=== PATIENT | female | born 1960 | race Caucasian/White ===

== ENCOUNTER 2018-10-16 13:51 | Inpatient (IN) | payer OTHER ==
[~2018-10-16] VITALS: Ht 157.5 cm; Wt 63.6 kg
[~2018-10-16 13:51] MED LIST: HYDR-762 PO
[2018-10-16 13:54] VITALS: Ht 157.5 cm; Wt 63.6 kg
--- NOTE | 2018-10-16 14:08 | ERD ---
ER Documentation Chief Complaint Chief Complaint aloc , trouble speaking since 0700 , chest pressure HPI 58-year-old female with a history of hypertension brought in by family due to increasing confusion and difficulty speaking since 7 AM today. Patient complains of a gradual onset severe headache that started around 8 AM. She is unable to provide further history as she is having difficulty speaking. She does complain of severe pain in her head at this time. No history of similar episodes in the past. ROS Limited secondary to the patient's confusion Medications Home Meds Reported Medications Metoprolol Tartrate* (Lopressor*) 25 Mg Tab, 25 MG PO DAILY, #60 TAB 10/16/18 Clonidine Hcl* (Clonidine Hcl*) 0.1 Mg Tab, 0.1 MG PO NEEDED PRN for HTN, TAB 10/16/18 Omeprazole* (Omeprazole*) 20 Mg Capsule.dr, 20 MG PO DAILY, #30 CAP 10/16/18 Discontinued Scripts Hydrocodone Bit-Acetaminophen* (Orick*) 10-325 Mg Tablet, 1 TAB PO Q6 PRN for PAIN, #12 TAB Prov:ANGELA BEAR MD 06/25/15 Allergies Allergies: Coded Allergies: No Known Allergy (Unverified , 10/16/18) PMhx/Soc Hx Cardiac Disorders: Yes (HTN) Hx Alcohol Use: No Hx Substance Use: No Hx Tobacco Use: Yes FmHx Unable to obtain Physical Exam Vitals Vital Signs Date Temp Pulse Resp B/P (MAP) Pulse Ox O2 O2 Flow FiO2 Time Delivery Rate 10/16/18 98.1 64 18 196/104 96 13:54 (134) Physical Exam Const: In significant distress secondary to pain, appears very uncomfortable Head: Atraumatic Eyes: Normal Conjunctiva, PERRLA, EOMI, no nystagmus ENT: Normal External Ears, Nose and Mouth. Neck: Full range of motion. No meningismus. No JVD Resp: Clear to auscultation bilaterally Cardio: Regular rate and rhythm, no murmurs. 2+ distal pulses in all 4 extremities Abd: Soft, non tender, non distended. Normal bowel sounds Skin: No petechiae or rashes Back: No midline or flank tenderness Ext: No cyanosis, or edema Neur: Awake and alert, oriented to self and place only, no facial asymmetry, following commands, strength and sensation equal in all 4 extremities and intact. No dysarthria but has some expressive aphasia. Psych: Normal Mood and Affect Result Diagram: 10/16/18 1405 10/16/18 1405 Results 24 hrs Laboratory Tests Test 10/16/18 14:05 White Blood Count 9.6 10^3/ul Red Blood Count 4.49 10^6/ul Hemoglobin 13.3 g/dl Hematocrit 39.5 % Mean Corpuscular Volume 88.0 fl Mean Corpuscular Hemoglobin 29.6 pg Mean Corpuscular Hemoglobin Concent 33.7 g/dl Red Cell Distribution Width 11.7 % Platelet Count 279 10^3/UL Mean Platelet Volume 9.9 fl Immature Granulocytes % 0.300 % Neutrophils % 66.7 % Lymphocytes % 25.4 % Monocytes % 6.1 % Eosinophils % 0.9 % Basophils % 0.6 % Nucleated Red Blood Cells % 0.0 /100WBC Immature Granulocytes # 0.030 10^3/ul Neutrophils # 6.4 10^3/ul Lymphocytes # 2.4 10^3/ul Monocytes # 0.6 10^3/ul Eosinophils # 0.1 10^3/ul Basophils # 0.1 10^3/ul Nucleated Red Blood Cells # 0.0 10^3/ul Prothrombin Time 12.9 Sec Prothrombin Time Ratio 1.0 INR International Normalized Ratio 0.96 Activated Partial Thromboplast Time 28.3 Sec Sodium Level 140 mmol/L Potassium Level 3.7 mmol/L Chloride Level 104 mmol/L Carbon Dioxide Level 27 mmol/L Anion Gap 9 Blood Urea Nitrogen 11 mg/dl Creatinine 0.68 mg/dl Est Glomerular Filtrat Rate mL/min > 60 mL/min Glucose Level 117 mg/dl Hemoglobin A1c 5.1 % Calcium Level 9.8 mg/dl Creatine Kinase 63 IU/L Creatine Kinase Index 0.6 Creatinine Kinase MB (Mass) 0.39 ng/ml Troponin I < 0.012 ng/ml Triglycerides Level 114 mg/dl Cholesterol Level 234 mg/dl LDL Cholesterol, Calculated 141 mg/dl HDL Cholesterol 70 mg/dl Cholesterol/HDL Ratio 3.3 RATIO Free Thyroxine 1.08 ng/dl Ethyl Alcohol Level < 10.0 mg/dl Current Medications Medications Dose Sig/Ricardo Start Time Status Last (Trade) Ordered Route PRN Stop Time Admin Dose Reason Admin Fentanyl 50 mcg ONCE ONCE 10/16/18 DC 10/16/18 (Sublimaze) IV 15:00 14:47 10/16/18 15:01 10 mg ONCE ONCE 10/16/18 DC 10/16/18 Metoclopramid IV 15:00 14:47 e HCl 10/16/18 15:01 (Reglan) Hydralazine 10 mg ONCE ONCE 10/16/18 DC 10/16/18 HCl IV 15:00 14:47 (Apresoline) 10/16/18 15:01 Ondansetron 4 mg ER BRIDGE 10/16/18 DC HCl (Zofran PRN IV 16:00 Inj) NAUSEA/VOMITI 10/16/18 16:13 NG 650 mg ER BRIDGE 10/16/18 DC Acetaminophen PRN PO 16:00 (Tylenol .MILD PAIN 10/16/18 16:14 Tab) 1-3 OR TEMP IV Flush 3 ml PER 10/16/18 (NS 3 ml) PROTOCOL IV 16:30 Ondansetron 4 mg Q6H PRN 10/16/18 10/16/18 HCl (Zofran IV 16:30 16:55 Inj) NAUSEA/VOMITI NG 650 mg Q6H PRN 10/16/18 Acetaminophen PO .PAIN 1-3 16:30 (Tylenol OR TEMP Tab) 1 tab Q6H PRN 10/16/18 Acetaminophen PO .MOD PAIN 16:30 / 4-6 Hydrocodone Bitart (Orick (5/325)) Morphine 2 mg Q4H PRN 10/16/18 Sulfate IV .SEVERE 16:30 (morphine) PAIN 7-10 Docusate 100 mg Q12H PRN 10/16/18 Sodium PO 16:30 (Colace) .CONSTIPATION Magnesium 30 ml DAILY PRN 10/16/18 Hydroxide PO 16:30 (Milk Of Mag) .CONSTIPATION 40 mg DAILY@06 10/17/18 Pantoprazole PO 06:00 (Protonix Tab) Sodium 1,000 ml @ [id number] IV 10/16/18 Chloride 75 mls/hr 16:04 Lorazepam 0.5 mg Q6H PRN 10/16/18 (Ativan) IV ANXIETY 16:30 Albuterol/ 3 ml Q4H RESP 10/16/18 Ipratropium THERAPY PRN 16:30 (Duoneb) HHN SHORTNESS OF BREATH Hydralazine 10 mg Q6H PRN 10/16/18 HCl IV ELEVATED 16:30 (Apresoline) BLOOD PRESSURE 1 tab Q5M PRN 10/16/18 Nitroglycerin SL ANGINA 16:30 (Nitroglyceri n (Sl Tab) 0.4 Mg) Aspirin 325 mg DAILY PO 10/17/18 (Ecotrin) 09:00 80 mg ONCE ONCE 10/16/18 DC Atorvastatin PO 16:30 Calcium 10/16/18 16:31 (Lipitor) Procedures/MDM EMERGENT LABS AND DIAGNOSTIC STUDIES: Lab Results above were reviewed and interpreted by me. CBC: no anemia or evidence of infection BMP: No e/o clinically significant electrolyte abnormality severe acidosis, alkalosis, renal failure, diabetic ketoacidosis Troponin within normal limits, not indicative of cardiac ischemia 12-lead EKG was interpreted by Kenzie Cuevas MD: Normal Sinus Rhythm with ventricular rate of 62 beats per minute Normal axis Normal intervals Anterior Q waves, possibly secondary to old infarct. No acute ST or T wave changes suggestive of acute ischemia or STEMI. Radiology Results as interpreted by Radiology below were reviewed by Maura Cuevas MD: Chest x-ray shows no acute abnormalities CT angiogram head and neck show no large vessel occlusion CT head shows no evidence of acute infarct or intracranial hemorrhage. White matter abnormalities noted Initial Nursing notes reviewed. Previous Medical Records requested via the Electronic Health Record. EMERGENCY DEPARTMENT COURSE / MEDICAL DECISION MAKING: Patient presented with headache and difficulty speaking with confusion per family. Her symptoms started around 8 AM, about 6 hours prior to arrival, so she is outside of the TPA window. Code stroke was activated at 1402. I spoke with Dr. Weaver from tele-neurology, who also evaluated the patient. CT and CTA we re done and did not show any large vessel occlusion or intracranial hemorrhage, however there is some white matter abnormalities. MRI was recommended for further evaluation for possible stroke versus PRES. she was given 10 mg of hydralazine for her blood pressure and fentanyl IV for her headache. At this time I have a higher suspicion for hypertensive emergency. Patient will be admitted for further work-up and stabilization. Critical Care Time: 45 minutes Treatments/Evaluations: Close monitoring and treatment of unstable vital signs, cardiorespiratory, and neurologic status, while maintaining tight balance of fluid, respiratory, and cardiac interventions. This time includes discussing the case with the patient and the patients family. This time does not include all procedures stated elsewhere in this record. This time also includes reviewing old records, labs and radiological studies. This time includes examining and re- examining the patient. Additionally, this time also includes arranging care with admitting and consulting physicians. Departure Diagnosis: Primary Impression: Hypertensive emergency Additional Impression: Acute encephalopathy Condition: Critical JANY CUEVAS MD Oct 16, 2018 14:08
[2018-10-16] MEDS ORDERED: SOD CHLORIDE 0.9% 100 ML ONE (14:28)
[2018-10-16] MEDS ORDERED: IODIXANOL LOCM 100 ML BTL ONE (14:29)
[2018-10-16] MEDS ORDERED: OMEP20CA16 PO (14:59)
[2018-10-16] MEDS ORDERED: FENTAnyl 50 MCG/ML VIAL IV ONE (15:00)
[2018-10-16] MEDS ORDERED: CLON-379 PO (15:00)
[2018-10-16] MEDS ORDERED: METOCLOPRAMIDE 10 MG INJ IV ONE (15:00)
[2018-10-16] MEDS ORDERED: METO-448 PO (15:00)
[2018-10-16] MEDS ORDERED: hydrALAzine 20 MG INJ IV ONE (15:00)
--- NOTE | 2018-10-16 15:36 | STROKE ---
Date/Time of Note Date/Time of Note DATE: 10/16/18 TIME: 16:24 Patient Information General Arrival Date Onset Date: Oct 16, 2018 Onset Time: 07:00 Onset Type 58 y/o F PMH HTN c/o sudden headache, difficulty with speech beginning at 0700 this morning. BP 194 Denies associated confusion, neck pain, vision or speech change. Age 58 Gender Vital Signs Date Temp Pulse Resp B/P (MAP) Pulse Ox O2 O2 Flow FiO2 Time Delivery Rate 10/16/18 98.1 64 18 196/104 96 13:54 (134) female Weight 63.6 kg Vital Signs Vital Signs Vital Signs Date Temp Pulse Resp B/P (MAP) Pulse Ox O2 O2 Flow FiO2 Time Delivery Rate 10/16/18 98.1 64 18 196/104 96 13:54 (134) Patient History Past Medical History Hypertension Current Medications Allergies: Coded Allergies: No Known Allergy (Unverified , 06/25/15) Labs Hematology Labs CBC & BMP FISHBONE 10/16/18 14:05 Hematology Lab Notes CBC & BMP FISHBONE 10/16/18 14:05 Chemistry Lab Notes CBC & BMP FISHBONE 10/16/18 14:05 History & Physical Patient History Notes Pt Hx Reviewed History of Present Illness 58 y/o F awoke this morning in usual state. at approximately 0700 developed holocranial pressure type headache. Denies associated vision or hearing change, no confusion or neck pain. Mild difficulty with communication- speaking intensifies head pain. No weakness. In ER, BP elevated. Review of Systems Psychiatric/Neurological: headache All Other Systems: Reviewed and Negative NIH Stroke Scale NIH Stroke Scale Dmpxi2Oi l4d LOC Questions: Mzczc4t Best Gaze: Urerc9m Vwznd6k alsy: Ulmhu3q rm - Left: Pokxo7r ight: Mvcqt1v eft: Vfvig6i ight: Rdnxu2t Gfnon7e Hreco4q Isrnu1c elias: Qmpgo4l Zgveb1c 4Bd Total Score: Iolvi0m Date/Time Recorded DATE: 10/16/18 TIME: 16:24 Submitted By Daniela Raza t-PA Imaging Review Date/Time Imaging Reviewed DATE: 10/16/18 TIME: 16:24 t-PA Administration Weight 63.6 kg Recommedation submitted by Daniela Raza Recommendations Disposition Severe headache in the setting of markedly elevated blood pressure. Symptoms and clinical presentation most c/w hypertensive encephalopathy. CT brain shows extensive periventricular ischemic change; no evidence per CT of acute stroke; no evidence on CTA H/N of large vessel occlusion . Admit for close monitoring and treatment. Gently lowering of BP. MRI brain. IVFNSS. 2DECHO. Treat headache symptomatically. ASA and statin unless otherwise contraindicated. Recommendation [id number] Diagnostic Labs: Ddrxp5k Lipid Proile CMP Coags Urine Drug Screen [id number] Therapy: [address] Speech Therapy [address] Recommendations: Wirqm0v Stroke Education DANIELA RAZA MD Oct 16, 2018 14:34
[2018-10-16] MEDS ORDERED: ONDANSETRON 4 MG INJ IV PRN (16:00)
[2018-10-16] MEDS ORDERED: ACETAMINOPHEN 325 MG TAB PO PRN (16:00)
[2018-10-16] MEDS: SOD CHLORIDE 0.45% 1,000 ML IV SCH (16:04)
--- NOTE | 2018-10-16 16:15 | HP ---
Date/Time of Note Date/Time of Note DATE: 10/16/18 TIME: 16:08 Assessment/Plan VTE Prophylaxis SCD applied (from Nsg): Yes Pharmacological prophylaxis: other Assessment/Plan Hospital Course Assessment and plan: 58-year-old female past medical history of hypertension who comes in with altered mental status and dysphasia, headache, with signs of hypertensive emergency and also cannot rule out TIA versus stroke. #Altered mental status/dysphasia, headache: Again symptoms could be secondary to patient's hypertensive encephalopathy/emergency. Also cannot rule out TIA versus stroke, although the head CT was initially negative. -Appreciate telemetry neurologist assessment, for now check TSH, A1c, lipid panel -For now allow for permissive hypertension until we know the results of MRI of the brain, also check carotid Doppler study and 2D echo -Continue high-dose aspirin, Lipitor 80 mg, get PT, OT, speech therapy consult, do neuro checks every 4 hours -Follow-up urine drug screen test #Hypertension: See above, for now holding home blood pressure medicines and allowing for permissive hypertension until we know the results of the brain MRI. #GI prophylaxis: PPI IV Result Diagram: 10/16/18 1405 10/16/18 1405 Results 24hrs Laboratory Tests Test 10/16/18 14:05 White Blood Count 9.6 Red Blood Count 4.49 Hemoglobin 13.3 Hematocrit 39.5 Mean Corpuscular Volume 88.0 Mean Corpuscular Hemoglobin 29.6 Mean Corpuscular Hemoglobin Concent 33.7 Red Cell Distribution Width 11.7 Platelet Count 279 Mean Platelet Volume 9.9 Immature Granulocytes % 0.300 Neutrophils % 66.7 Lymphocytes % 25.4 Monocytes % 6.1 Eosinophils % 0.9 Basophils % 0.6 Nucleated Red Blood Cells % 0.0 Immature Granulocytes # 0.030 Neutrophils # 6.4 Lymphocytes # 2.4 Monocytes # 0.6 Eosinophils # 0.1 Basophils # 0.1 Nucleated Red Blood Cells # 0.0 Prothrombin Time 12.9 Prothrombin Time Ratio 1.0 INR International Normalized Ratio 0.96 Activated Partial Thromboplast Time 28.3 Sodium Level 140 Potassium Level 3.7 Chloride Level 104 Carbon Dioxide Level 27 Anion Gap 9 Blood Urea Nitrogen 11 Creatinine 0.68 Est Glomerular Filtrat Rate mL/min > 60 Glucose Level 117 Hemoglobin A1c 5.1 Calcium Level 9.8 Creatine Kinase 63 Creatine Kinase Index 0.6 Creatinine Kinase MB (Mass) 0.39 Troponin I < 0.012 Triglycerides Level 114 Cholesterol Level 234 H LDL Cholesterol, Calculated 141 HDL Cholesterol 70 Cholesterol/HDL Ratio 3.3 Ethyl Alcohol Level < 10.0 H HPI/ROS Admit Date/Time Admit Date/Time Hx of Present Illness 58-year-old female past medical history of hypertension who comes in with altered mental status and dysphasia. Patient also complained of headache. Her symptoms appear to begin around this morning, possibly gradual in onset. Patient also complained of nausea symptoms and decreased p.o. intake. According to the family member patient last night did not have any complaints including these. Presently denies any upper or lower GI bleeding, no chest pain, although she has had some mild shortness of breath. No diarrhea constipation, no fevers or chills. When she came in she was found with very elevated blood pressure 196/104, and code stroke was called and the telemetry neurologist to assess the patient thinking patient may be having hypertensive emergency. Patient was given a blood pressure medication to help control the systolic and diastolic blood pressure and presently it is in the high normal range. Head CT did not show any acute findings, however an MRI of the brain is pending which was recommended by the telemetry neurologist as well. Patient denies any prior history of any stroke or heart attacks. PMH/Family/Social Past Medical History Medications Current Medications Ondansetron HCl (Zofran Inj) 4 mg ER BRIDGE PRN IV NAUSEA/VOMITING; Start 10/16/18 at 16:00; Stop 10/17/18 at 15:59 Acetaminophen (Tylenol Tab) 650 mg ER BRIDGE PRN PO .MILD PAIN 1-3 OR TEMP; Start 10/16/18 at 16:00; Stop 10/17/18 at 15:59 Coded Allergies: No Known Allergy (Unverified , 10/16/18) Past Surgical History Past Surgical Hx: no surgical history Family History Significant Family History: other (Mother: diabetes, hypertension) Social History Alcohol Use: none Smoking Status: Current some day smoker (Few cigarettes a day for many years) Drug Use: none Exam/Review of Systems Vital Signs Vitals Vital Signs Date Temp Pulse Resp B/P (MAP) Pulse Ox O2 O2 Flow FiO2 Time Delivery Rate 10/16/18 98.1 64 18 196/104 96 13:54 (134) Exam Exam Gen: Lying in bed, daughter at bedside, in mild distress Head: Atraumatic Eyes: Normal Conjunctiva, PERRLA, EOMI, no nystagmus ENT: Normal External Ears, Nose and Mouth. Neck: Full range of motion. No meningismus. No JVD Resp: Clear to auscultation bilaterally Cardio: Regular rate and rhythm, no murmurs. 2+ distal pulses in all 4 extremities Abd: Soft, non tender, non distended. Normal bowel sounds Ext: No lower extremity edema bilaterally Neuro: Awake and alert, oriented to self and place only, no facial asymmetry, following commands, 4 out of 5 strength bilateral upper extremities, 5 out of 5 strength bilateral lower 70s, sensation intact, gait not assessed, appears to have some mild expressive aphasia JUAN DUNN. Oct 16, 2018 16:15
[2018-10-16] MEDS ORDERED: ATORVASTATIN 80 MG TAB PO ONE (16:30)
[2018-10-16] MEDS ORDERED: morphine 2 MG INJ IV PRN (16:30)
[2018-10-16] MEDS ORDERED: MAGNESIUM HYDROXIDE 30ML CUP PO PRN (16:30)
[2018-10-16] MEDS ORDERED: ALBUTEROL/IPRATROPIUM (NEB) 3 ML AMP HHN PRN (16:30)
[2018-10-16] MEDS ORDERED: hydrALAzine 20 MG INJ IV PRN (16:30)
[2018-10-16] MEDS ORDERED: DOCUSATE SODIUM 100 MG CAP PO PRN (16:30)
[2018-10-16] MEDS ORDERED: LORAZEPAM 2 MG INJ IV PRN (16:30)
[2018-10-16] MEDS ORDERED: NITROGLYCERIN (SL) 0.4 MG TAB SL PRN (16:30)
[2018-10-16] MEDS ORDERED: HYDROCODONE/APAP (5/325) TAB PO PRN (16:30)
[2018-10-16] MEDS ORDERED: NACL 0.9% 3 ML SYG IV SCH (16:30)
[2018-10-16] MEDS: ONDANSETRON 4 MG INJ IV PRN (16:55)
[2018-10-16 19:20] VITALS: PULSE 70
[2018-10-16 20:00] VITALS: BP 138/75; PULSE 71; RESP 18
[2018-10-16] MEDS: ACETAMINOPHEN 325 MG TAB PO PRN (21:10)
[2018-10-17] VITALS (9 sets, daily range): BP systolic 102–156; BP diastolic 63–89; PULSE 67–91; RESP 16–19
[2018-10-17] MEDS: SOD CHLORIDE 0.45% 1,000 ML IV SCH (05:24)
[2018-10-17] MEDS ORDERED: PANTOPRAZOLE (EC) 40 MG TAB PO SCH (06:00)
[2018-10-17] MEDS ORDERED: ASPIRIN (EC) 325 MG TAB PO SCH (09:00)
[2018-10-17] MEDS ORDERED: POTASSIUM CHLORIDE (SR) 20 MEQ TAB PO STA (11:09)
--- NOTE | 2018-10-17 11:18 | PN ---
Date/Time of Note Date/Time of Note DATE: 10/17/18 TIME: 11:18 Assessment/Plan VTE Prophylaxis SCD applied (from Nsg): Yes Pharmacological prophylaxis: other Lines/Catheters IV Catheter Type (from Nrsg): Peripheral IV Urinary Cath still in place: No Assessment/Plan Hospital Course S: Patient has less overall weakness symptoms, blood pressure is improved, tolerating diet, seen by physical therapy team. Denies any headaches presently. O: VS- see below PE: Gen: Lying in bed, daughter at bedside, in mild distress Head: Atraumatic Eyes: Normal Conjunctiva, PERRLA, EOMI, no nystagmus ENT: Normal External Ears, Nose and Mouth. Neck: Full range of motion. No meningismus. No JVD Resp: Clear to auscultation bilaterally Cardio: Regular rate and rhythm, no murmurs. 2+ distal pulses in all 4 extremities Abd: Soft, non tender, non distended. Normal bowel sounds Ext: No lower extremity edema bilaterally Neuro: Awake and alert, oriented to self and place only, no facial asymmetry, following commands, 4 out of 5 strength bilateral upper extremities, 5 out of 5 strength bilateral lower 70s, sensation intact, gait not assessed, appears to have some mild expressive aphasia MRI brain: IMPRESSION: 1. No acute intracranial hemorrhage, infarction or mass. 2. Moderate to marked white matter signal abnormality which could represent chronic small vessel ischemic changes. 3. 8 mm probable meningioma overlying left parasagittal posterior frontal lobe. 4. Minimal generalized cerebral volume loss. Assessment and plan: 58-year-old female past medical history of hypertension who comes in with altered mental status and dysphasia, headache, with signs of hypertensive emergency and also cannot rule out TIA versus stroke. #Altered mental status/dysphasia, headache: Possibly secondary to hypertensive encephalopathy/emergency. Blood pressure much improved today, patient feels much better overall. MRI of the brain did not show any acute strokes, however there are some white matter changes and 8 mm meningioma. I spoke on the phone with neurosurgery team Dr. Landa who states that the meningioma or 8 mm mass likely is not contributing patient's symptoms. This can be monitored and followed up as an outpatient with brain imaging scan in the next 6 months to start. This is to determine if there are any changes in size of the small meningioma. -For now given the white matter changes will obtain neurology consult. -Continue PT and OT as needed #Hypertension: Blood pressure improved -Monitor, continue current medications. #GI prophylaxis: PPI Result Diagram: 10/17/18 0536 10/17/18 0537 Results 24hrs Laboratory Tests Test 10/16/18 14:05 10/16/18 20:45 10/17/18 05:36 10/17/18 05:37 White Blood Count 9.6 10.1 Red Blood Count 4.49 4.25 Hemoglobin 13.3 12.6 Hematocrit 39.5 38.1 Mean Corpuscular 88.0 89.6 Volume Mean Corpuscular 29.6 29.6 Hemoglobin Mean Corpuscular 33.7 33.1 Hemoglobin Concen t Red Cell 11.7 12.2 Distribution Width Platelet Count 279 261 Mean Platelet 9.9 10.5 H Volume Immature 0.300 0.300 Granulocytes % Neutrophils % 66.7 62.4 Lymphocytes % 25.4 28.4 Monocytes % 6.1 7.4 Eosinophils % 0.9 0.9 Basophils % 0.6 0.6 Nucleated Red 0.0 0.0 Blood Cells % Immature 0.030 0.030 Granulocytes # Neutrophils # 6.4 6.3 Lymphocytes # 2.4 2.9 Monocytes # 0.6 0.8 Eosinophils # 0.1 0.1 Basophils # 0.1 0.1 Nucleated Red 0.0 0.0 Blood Cells # Prothrombin Time 12.9 Prothrombin Time 1.0 Ratio INR International 0.96 Normalized Ratio Activated 28.3 Partial Thrombopl ast Time Sodium Level 140 140 Potassium Level 3.7 3.3 L Chloride Level 104 105 Carbon Dioxide 27 24 Level Anion Gap 9 11 Blood Urea 11 15 Nitrogen Creatinine 0.68 0.79 Est Glomerular > 60 > 60 Filtrat Rate mL/min Glucose Level 117 124 Hemoglobin A1c 5.1 5.1 Calcium Level 9.8 9.2 Creatine Kinase 63 Creatine Kinase 0.6 Index Creatinine Kinase 0.39 MB (Mass) Troponin I < 0.012 Triglycerides 114 106 Level Cholesterol Level 234 H 201 H LDL Cholesterol, 141 119 Calculated HDL Cholesterol 70 61 Cholesterol/HDL 3.3 3.2 Ratio Free Thyroxine 1.08 Ethyl Alcohol < 10.0 H Level Urine Color YELLOW Urine Clarity SLIGHTLY CLOUDY A Urine pH 7.0 Urine Specific 1.050 H [place] Urine Ketones 1+ H Urine Nitrite NEGATIVE Urine Bilirubin NEGATIVE Urine NEGATIVE Urobilinogen Urine Leukocyte NEGATIVE Esterase Urine Microscopic 3 RBC Urine Microscopic 4 WBC Urine Squamous FEW Epithelial Cells Urine Bacteria FEW A Urine Mucus FEW A Urine Hemoglobin NEGATIVE Urine Glucose NEGATIVE Urine Total NEGATIVE Protein Urine Opiates NEGATIVE Screen Urine NEGATIVE Barbiturates Urine Negative Amphetamines Screen Urine NEGATIVE Benzodiazepines Screen Urine Cocaine NEGATIVE Screen Urine NEGATIVE Cannabinoids Phosphorus Level 4.5 Magnesium Level 2.2 Thyroid 3.570 Stimulating Hormone (TSH) Exam/Review of Systems Exam Vitals Vital Signs Date Temp Pulse Resp B/P (MAP) Pulse Ox O2 O2 Flow FiO2 Time Delivery Rate 10/17/18 97.4 82 17 125/73 97 Room Air 08:10 (90) Results Results 24hrs Laboratory Tests Test 10/16/18 14:05 10/16/18 20:45 10/17/18 05:36 10/17/18 05:37 White Blood Count 9.6 10.1 Red Blood Count 4.49 4.25 Hemoglobin 13.3 12.6 Hematocrit 39.5 38.1 Mean Corpuscular 88.0 89.6 Volume Mean Corpuscular 29.6 29.6 Hemoglobin Mean Corpuscular 33.7 33.1 Hemoglobin Concen t Red Cell 11.7 12.2 Distribution Width Platelet Count 279 261 Mean Platelet 9.9 10.5 H Volume Immature 0.300 0.300 Granulocytes % Neutrophils % 66.7 62.4 Lymphocytes % 25.4 28.4 Monocytes % 6.1 7.4 Eosinophils % 0.9 0.9 Basophils % 0.6 0.6 Nucleated Red 0.0 0.0 Blood Cells % Immature 0.030 0.030 Granulocytes # Neutrophils # 6.4 6.3 Lymphocytes # 2.4 2.9 Monocytes # 0.6 0.8 Eosinophils # 0.1 0.1 Basophils # 0.1 0.1 Nucleated Red 0.0 0.0 Blood Cells # Prothrombin Time 12.9 Prothrombin Time 1.0 Ratio INR International 0.96 Normalized Ratio Activated 28.3 Partial Thrombopl ast Time Sodium Level 140 140 Potassium Level 3.7 3.3 L Chloride Level 104 105 Carbon Dioxide 27 24 Level Anion Gap 9 11 Blood Urea 11 15 Nitrogen Creatinine 0.68 0.79 Est Glomerular > 60 > 60 Filtrat Rate mL/min Glucose Level 117 124 Hemoglobin A1c 5.1 5.1 Calcium Level 9.8 9.2 Creatine Kinase 63 Creatine Kinase 0.6 Index Creatinine Kinase 0.39 MB (Mass) Troponin I < 0.012 Triglycerides 114 106 Level Cholesterol Level 234 H 201 H LDL Cholesterol, 141 119 Calculated HDL Cholesterol 70 61 Cholesterol/HDL 3.3 3.2 Ratio Free Thyroxine 1.08 Ethyl Alcohol < 10.0 H Level Urine Color YELLOW Urine Clarity SLIGHTLY CLOUDY A Urine pH 7.0 Urine Specific 1.050 H [place] Urine Ketones 1+ H Urine Nitrite NEGATIVE Urine Bilirubin NEGATIVE Urine NEGATIVE Urobilinogen Urine Leukocyte NEGATIVE Esterase Urine Microscopic 3 RBC Urine Microscopic 4 WBC Urine Squamous FEW Epithelial Cells Urine Bacteria FEW A Urine Mucus FEW A Urine Hemoglobin NEGATIVE Urine Glucose NEGATIVE Urine Total NEGATIVE Protein Urine Opiates NEGATIVE Screen Urine NEGATIVE Barbiturates Urine Negative Amphetamines Screen Urine NEGATIVE Benzodiazepines Screen Urine Cocaine NEGATIVE Screen Urine NEGATIVE Cannabinoids Phosphorus Level 4.5 Magnesium Level 2.2 Thyroid 3.570 Stimulating Hormone (TSH) Medications Medication Current Medications IV Flush (NS 3 ml) 3 ml PER PROTOCOL IV ; Start 10/16/18 at 16:30 Ondansetron HCl (Zofran Inj) 4 mg Q6H PRN IV NAUSEA/VOMITING Last administered on 10/16/18at 16:55; Admin Dose 4 MG; Start 10/16/18 at 16:30 Acetaminophen (Tylenol Tab) 650 mg Q6H PRN PO .PAIN 1-3 OR TEMP Last administered on 10/16/18at 21:10; Admin Dose 650 MG; Start 10/16/18 at 16:30 Acetaminophen/ Hydrocodone Bitart ([place] (5/325)) 1 tab Q6H PRN PO .MOD PAIN 4- 6; Start 10/16/18 at 16:30 Morphine Sulfate (morphine) 2 mg Q4H PRN IV .SEVERE PAIN 7-10; Start 10/16/18 at 16:30 Docusate Sodium (Colace) 100 mg Q12H PRN PO .CONSTIPATION; Start 10/16/18 at 16:30 Magnesium Hydroxide (Milk Of Mag) 30 ml DAILY PRN PO .CONSTIPATION; Start 10/16/18 at 16:30 Pantoprazole (Protonix Tab) 40 mg DAILY@06 PO Last administered on 10/17/18at 05:58; Admin Dose 40 MG; Start 10/17/18 at 06:00 Sodium Chloride 1,000 ml @ 75 mls/hr [id number] IV Last administered on 10/16/18at 16:04; Admin Dose 75 MLS/HR; Start 10/16/18 at 16:04 Lorazepam (Ativan) 0.5 mg Q6H PRN IV ANXIETY; Start 10/16/18 at 16:30 Albuterol/ Ipratropium (Duoneb) 3 ml Q4H RESP THERAPY PRN HHN SHORTNESS OF BREATH; Start 10/16/18 at 16:30 Hydralazine HCl (Apresoline) 10 mg Q6H PRN IV ELEVATED BLOOD PRESSURE; Start 10/16/18 at 16:30 Nitroglycerin (Nitroglycerin (Sl Tab) 0.4 Mg) 1 tab Q5M PRN SL ANGINA; Start at 16:30 Aspirin (Ecotrin) 325 mg DAILY PO Last administered on 10/17/18at 08:45; Admin Dose 325 MG; Start 10/17/18 at 09:00 JUAN DUNN Oct 17, 2018 11:18
--- NOTE | 2018-10-17 11:48 | PDOCDIS ---
Discharge Instructions CONDITION [id number] Patient Condition: [id number] Stable HOME CARE INSTRUCTIONS: [id number] Diet Instructions: [id number] Low Fat /Cholesterol ACTIVITY: [id number] Activity Restrictions: [id number] Slowly Increase Activity Rest between Activity Avoid heavy lifting FOLLOW UP/APPOINTMENTS Follow-up Plan Please take your medications as prescribed. Please follow-up with your regular doctor in clinic in the next 1 to 2 weeks. Based on discussion we had, along with the skin care consultant team, ask your primary care doctor to arrange a follow-up brain imaging study such as brain CT scan or MRI in 6 months to further determine the small meningioma found on this admission. JUAN DUNN. Oct 17, 2018 11:48
[2018-10-17] MEDS ORDERED: CLON-379 PO (11:50)
[2018-10-17] MEDS ORDERED: METO-448 PO (11:50)
[2018-10-17] MEDS ORDERED: OMEP20CA16 PO (11:50)
--- NOTE | 2018-10-17 11:56 | DS ---
Date/Time of Note Date/Time of Note DATE: 10/17/18 TIME: 11:50 Discharge Summary Admission/Discharge Info Admit Date/Time Oct 16, 2018 at 15:49 Discharge Date/Time Discharge Diagnosis #Altered mental status/dysphasia, headache: Likely secondary to hypertensive encephalopathy/emergency -Resolved now -ruled out for stroke #8 mm meningioma: Found on brain imaging study on this admission, per discussion with neurosurgery team not contributing to patient's symptoms and recommend follow-up brain imaging study in 6 months to determine any changes in size of this #Hypertension: Blood pressure improved Patient Condition: Stable Procedures MRI brain: IMPRESSION: 1. No acute intracranial hemorrhage, infarction or mass. 2. Moderate to marked white matter signal abnormality which could represent chronic small vessel ischemic changes. 3. 8 mm probable meningioma overlying left parasagittal posterior frontal lobe. 4. Minimal generalized cerebral volume loss. Carotid Doppler study: IMPRESSION: 1. Minimal bilateral carotid bifurcation/carotid bulb plaque without evidence for hemodynamically significant stenosis - validated velocity measurements with angiographic measurements, velocity criteria are extrapolated from diameter data as defined by the Society of Radiologists in Ultrasound Consensus Conference Radiology 2003; 229;340-346. This study does indirectly reference the measurement of the distal ICA diameter as the denominator for stenosis measurement. 2. Antegrade flow seen within the vertebral arteries bilaterally. Hx of Present Illness 58-year-old female past medical history of hypertension who comes in with altered mental status and dysphasia. Patient also complained of headache. Her symptoms appear to begin around this morning, possibly gradual in onset. Patient also complained of nausea symptoms and decreased p.o. intake. According to the family member patient last night did not have any complaints including these. Presently denies any upper or lower GI bleeding, no chest pain, although she has had some mild shortness of breath. No diarrhea constipation, no fevers or chills. When she came in she was found with very elevated blood pressure 196/104, and code stroke was called and the telemetry neurologist to assess the patient thinking patient may be having hypertensive emergency. Patient was given a blood pressure medication to help control the systolic and diastolic blood pressure and presently it is in the high normal range. Head CT did not sh ow any acute findings, however an MRI of the brain is pending which was recommended by the telemetry neurologist as well. Patient denies any prior history of any stroke or heart attacks. Hospital Course Patient was admitted and she underwent imaging studies including carotid Doppler study and brain MRI. There were no findings of any hemorrhagic or ischemic in farcts. However there were some white matter changes an 8 mm meningioma. Per discussion with both neurology and neurosurgery team, the meningioma was not thought to be contributing to the patient's symptoms. Patient did receive high- dose aspirin and Lipitor, however her symptoms improved while she was here in the hospital. She was able to ambulate, tolerated p.o. diet. Her blood pressure and other vital signs were stable as well. Patient was educated about the importance of adhering to her blood pressure medicines as the neurology team instructed patient and myself that the white matter changes were thought to be secondary to uncontrolled high blood pressure over many years. Labs are stable as well. She will be discharged home today improved condition after getting clearance from the [employer] sales consultant teams, but is recommended to follow-up with brain imaging scan in the next 6 months to see if there are any changes in the size of the small meningioma. See below for full list of discharge medications. Home Meds Active Scripts Metoprolol Tartrate* (Lopressor*) 25 Mg Tab, 25 MG PO DAILY, #30 TAB 2 Refills Prov:JUAN DUNN S. 10/17/18 Clonidine Hcl* (Clonidine Hcl*) 0.1 Mg Tab, 0.1 MG PO NEEDED PRN for HTN, #14 TAB Prov:JUAN DUNN S. 10/17/18 Omeprazole* (Omeprazole*) 20 Mg Capsule.dr, 20 MG PO DAILY, #30 CAP 2 Refills Prov:ARNOLD DUNNP S. 10/17/18 Discontinued Scripts Hydrocodone Bit-Acetaminophen* ([place]*) 10-325 Mg Tablet, 1 TAB PO Q6 PRN for PAIN, #12 TAB Prov:ANGELA BEAR MD 06/25/15 Follow-up Plan Please take your medications as prescribed. Please follow-up with your regular doctor in clinic in the next 1 to 2 weeks. Based on discussion we had, along with the [employer] sales consultant team, ask your primary care doctor to arrange a follow-up brain imaging study such as brain CT scan or MRI in 6 months to further determine the small meningioma found on this admission. Primary Care Provider Care Physician No Primary Pending Labs Laboratory Tests Test 10/16/18 14:05 10/16/18 20:45 10/17/18 05:36 10/17/18 05:37 White Blood 9.6 10.1 Count 10^3/ul (4.8-10 10^3/ul (4.8-1 .8) 0.8) Red Blood 4.49 4.25 Count 10^6/ul (4.20-5 10^6/ul (4.20- .40) 5.40) Hemoglobin 13.3 12.6 g/dl (12.0-16.0 g/dl (12.0-16. ) 0) Hematocrit 39.5 38.1 % (37.0-47.0) % (37.0-47.0) Mean 88.0 89.6 Corpuscular fl (82.0-101.0) fl (82.0-101.0 Volume ) Mean 29.6 29.6 Corpuscular pg (29.0-33.0) pg (29.0-33.0) Hemoglobin Mean 33.7 33.1 Corpuscular g/dl (32.0-37.0 g/dl (32.0-37. Hemoglobin Conc ) 0) ent Red Cell 11.7 12.2 Distribution % (11.5-14.5) % (11.5-14.5) Width Platelet Count 279 261 10^3/UL (140-41 10^3/UL (140-4 5) 15) Mean Platelet 9.9 10.5 Volume fl (7.4-10.4) fl (7.4-10.4) Immature 0.300 0.300 Granulocytes % % (0.001-0.429) % (0.001-0.429 ) Neutrophils % 66.7 62.4 % (39.0-77.0) % (39.0-77.0) Lymphocytes % 25.4 28.4 % (15.0-51.0) % (15.0-51.0) Monocytes % 6.1 7.4 % (0.0-11.0) % (0.0-11.0) Eosinophils % 0.9 % (0.0-7.0) 0.9 % (0.0-7.0) Basophils % 0.6 % (0.0-2.0) 0.6 % (0.0-2.0) Nucleated Red 0.0 0.0 Blood Cells % /100WBC (0.0-0. /100WBC (0.0-0 0) .0) Immature 0.030 0.030 Granulocytes # 10^3/ul (0.0-0. 10^3/ul (0.0-0 031) .031) Neutrophils # 6.4 6.3 10^3/ul (1.6-7. 10^3/ul (1.6-7 5) .5) Lymphocytes # 2.4 2.9 10^3/ul (0.8-2. 10^3/ul (0.8-2 9) .9) Monocytes # 0.6 0.8 10^3/ul (0.3-0. 10^3/ul (0.3-0 9) .9) Eosinophils # 0.1 0.1 10^3/ul (0.0-0. 10^3/ul (0.0-0 5) .5) Basophils # 0.1 0.1 10^3/ul (0.0-0. 10^3/ul (0.0-0 1) .1) Nucleated Red 0.0 0.0 Blood Cells # 10^3/ul (0.0-0. 10^3/ul (0.0-0 0) .0) Prothrombin 12.9 Time Sec (11.9-14.9) Prothrombin 1.0 Time Ratio INR 0.96 International Normalized Rati o Activated 28.3 Partial Thrombo Sec (23.0-35.0) plast Time Sodium Level 140 140 mmol/L (135-144 mmol/L (135-14 ) 4) Potassium 3.7 3.3 Level mmol/L (3.5-5.1 mmol/L (3.5-5. ) 1) Chloride Level 104 105 mmol/L (97-110) mmol/L (97-110 ) Carbon Dioxide 27 24 Level mmol/L (21-31) mmol/L (21-31) Anion Gap 9 (5-13) 11 (5-13) Blood Urea 11 mg/dl (7-20) 15 Nitrogen mg/dl (7-20) Creatinine 0.68 0.79 mg/dl (0.44-1.0 mg/dl (0.44-1. 0) 00) Est Glomerular > 60 > 60 Filtrat mL/min (>60) mL/min (>60) Rate mL/min Glucose Level 117 124 mg/dl (70-220) mg/dl (70-220) Hemoglobin A1c 5.1 % (0-5.9) 5.1 % (0-5.9) Calcium Level 9.8 9.2 mg/dl (8.4-10.2 mg/dl (8.4-10. ) 2) Creatine 63 Kinase IU/L (23-200) Creatine Kinase 0.6 Index Creatinine 0.39 Kinase MB ng/ml (0.0-2.4) (Mass) Troponin I < 0.012 ng/ml (0.000-0. 120) Triglycerides 114 106 Level mg/dl (0-149) mg/dl (0-149) Cholesterol 234 201 Level mg/dl (100-200) mg/dl (100-200 ) LDL 141 mg/dl 119 mg/dl Cholesterol, Calculated HDL 70 61 Cholesterol mg/dl (35-98) mg/dl (35-98) Cholesterol/HDL 3.3 RATIO 3.2 RATIO Ratio Free Thyroxine 1.08 ng/dl (0.64-1.7 9) Ethyl Alcohol < 10.0 Level mg/dl (0-0) Urine Color YELLOW (YELLOW ) Urine Clarity SLIGHTLY CLOUD Y (CLEAR) Urine pH 7.0 (5.0-9.0) Urine Specific 1.050 (1.003-1 [place] .030) Urine Ketones 1+ mg/dL (NEGATIV E) Urine Nitrite NEGATIVE mg/dL (NEGATIV E) Urine NEGATIVE Bilirubin mg/dL (NEGATIV E) Urine NEGATIVE Urobilinogen mg/dL (NEGATIV E) Urine Leukocyte NEGATIVE Ra/u Esterase l Urine 3 /HPF (0-5) Microscopic RBC Urine 4 /HPF (0-5) Microscopic WBC Urine Squamous FEW /HPF (FEW) Epithelial Cell s Urine Bacteria FEW /HPF (NONE SEEN) Urine Mucus FEW /HPF (NONE SEEN) Urine NEGATIVE Hemoglobin mg/dL (NEGATIV E) Urine Glucose NEGATIVE mg/dL (NEGATIV E) Urine Total NEGATIVE Protein mg/dl (NEGATIV E) Urine Opiates NEGATIVE (NEGA Screen TIVE) Urine NEGATIVE (NEGA Barbiturates TIVE) Urine Negative (NEGA Amphetamines TIVE) Screen Urine NEGATIVE (NEGA Benzodiazepines TIVE) Screen Urine Cocaine NEGATIVE (NEGA Screen TIVE) Urine NEGATIVE (NEGA Cannabinoids TIVE) Phosphorus 4.5 Level mg/dl (2.5-4.9 ) Magnesium 2.2 Level mg/dl (1.7-2.5 ) Thyroid 3.570 Stimulating MIU/L (0.465-4 Hormone (TSH) .680) Microbiology Date/Time Source Procedure Growth Status 10/16/18 20:45 Clean Catch Urine Urine Culture - Preliminary NO Resulted GROWTH AFTER 24 HOURS JUAN DUNN Oct 17, 2018 11:56
[2018-10-17] MEDS: ONDANSETRON 4 MG INJ IV PRN (12:43)
--- NOTE | 2018-10-17 13:03 | CONSI ---
Assessment/Plan Assessment/Plan Assessment/Plan (Recall) 58 F c/ poorly controlled HTN, who presents for evaluation of ams and dysphasia c/f stroke.. The clinical picture is consistent w/ hypertensive urgency.. MRI brain is reassuringly negative for acute intracranial pathology...though notable for severe small vessel ischemic changes (and a small parafalcine meningioma), for which neurology is consulted.. Head and Neck CTA are unrevealing.. P: Meningioma follow up in ~ 6 months. Agree w/ asa daily for cerebrovascular disease management.. Aggressive BP control longitudinally Other management and supportive care per primary Consultation Date/Type/Reason Admit Date/Time Type of Consult Neurology Reason for Consultation abnl MRI brain Requesting Provider: JUAN DUNN Date/Time of Note DATE: 10/17/18 TIME: 12:58 Hx of Present Illness 58-year-old female past medical history of hypertension who comes in with altered mental status and dysphasia. Patient also complained of headache. Her symptoms appear to begin around this morning, possibly gradual in onset. Patient also complained of nausea symptoms and decreased p.o. intake. According to the family member patient last night did not have any complaints including these. Presently denies any upper or lower GI bleeding, no chest pain, although she has had some mild shortness of breath. No diarrhea constipation, no fevers or chills. When she came in she was found with very elevated blood pressure 196/104, and code stroke was called and the telemetry neurologist to assess the patient thinking patient may be having hypertensive emergency. Patient was given a blood pressure medication to help control the systolic and diastolic blood pressure and presently it is in the high normal range. Head CT did not show any acute findings, however an Patient denies any prior history of any stroke or heart attacks. MRI brain showed: ..Moderate to marked white matter signal abnormality which could represent chronic small vessel ischemic changes. for which neurology is consulted. 12 PT ROS ow neg Objective Exam Vitals Vital Signs Date Temp Pulse Resp B/P (MAP) Pulse Ox O2 O2 Flow FiO2 Time Delivery Rate 10/17/18 97.6 73 17 151/89 98 Room Air 12:06 (109) Exam PE: Gen Appearance: No Apparent Distress HEENT: Normocephalic Cardiovascular: Regular rate Lungs: Clear bilaterally Abdomen: Soft Extremities: Dry NE: The patient was alert and oriented. Language was normal. Fund of knowledge was normal. Pupils were equal and reactive to light. There was no afferent pupillary defect. Visual rebolledo were normal. Funduscopic examination was limited. Extra-ocular movements were full. Ptosis was absent. There was no nystagmus. Facial sensation was normal. Face was symmetric with normal strength. Hearing was intact. Palate movements were normal. Neck strength was normal. There was normal tongue bulk and speed of movement. Tone was normal. Muscle bulk was normal. I did not see fasciculations. Arms and legs were strong. Vibration sensation was normal. Temperature and pinprick sensation was normal. Rapid alternating movements were normal. There was no dysmetria. There was no intention tremor. Gait was deferred due to bedrest. Arm and leg reflexes were 2+ and symmetric. Campos's sign was absent. Plantar responses were flexor. Results Result Diagram: 10/17/18 0536 10/17/18 0537 Results 24hrs Laboratory Tests Test 10/16/18 14:05 10/16/18 20:45 10/17/18 05:36 10/17/18 05:37 White Blood Count 9.6 10.1 Red Blood Count 4.49 4.25 Hemoglobin 13.3 12.6 Hematocrit 39.5 38.1 Mean Corpuscular 88.0 89.6 Volume Mean Corpuscular 29.6 29.6 Hemoglobin Mean Corpuscular 33.7 33.1 Hemoglobin Concen t Red Cell 11.7 12.2 Distribution Width Platelet Count 279 261 Mean Platelet 9.9 10.5 H Volume Immature 0.300 0.300 Granulocytes % Neutrophils % 66.7 62.4 Lymphocytes % 25.4 28.4 Monocytes % 6.1 7.4 Eosinophils % 0.9 0.9 Basophils % 0.6 0.6 Nucleated Red 0.0 0.0 Blood Cells % Immature 0.030 0.030 Granulocytes # Neutrophils # 6.4 6.3 Lymphocytes # 2.4 2.9 Monocytes # 0.6 0.8 Eosinophils # 0.1 0.1 Basophils # 0.1 0.1 Nucleated Red 0.0 0.0 Blood Cells # Prothrombin Time 12.9 Prothrombin Time 1.0 Ratio INR International 0.96 Normalized Ratio Activated 28.3 Partial Thrombopl ast Time Sodium Level 140 140 Potassium Level 3.7 3.3 L Chloride Level 104 105 Carbon Dioxide 27 24 Level Anion Gap 9 11 Blood Urea 11 15 Nitrogen Creatinine 0.68 0.79 Est Glomerular > 60 > 60 Filtrat Rate mL/min Glucose Level 117 124 Hemoglobin A1c 5.1 5.1 Calcium Level 9.8 9.2 Creatine Kinase 63 Creatine Kinase 0.6 Index Creatinine Kinase 0.39 MB (Mass) Troponin I < 0.012 Triglycerides 114 106 Level Cholesterol Level 234 H 201 H LDL Cholesterol, 141 119 Calculated HDL Cholesterol 70 61 Cholesterol/HDL 3.3 3.2 Ratio Free Thyroxine 1.08 Ethyl Alcohol < 10.0 H Level Urine Color YELLOW Urine Clarity SLIGHTLY CLOUDY A Urine pH 7.0 Urine Specific 1.050 H [place] Urine Ketones 1+ H Urine Nitrite NEGATIVE Urine Bilirubin NEGATIVE Urine NEGATIVE Urobilinogen Urine Leukocyte NEGATIVE Esterase Urine Microscopic 3 RBC Urine Microscopic 4 WBC Urine Squamous FEW Epithelial Cells Urine Bacteria FEW A Urine Mucus FEW A Urine Hemoglobin NEGATIVE Urine Glucose NEGATIVE Urine Total NEGATIVE Protein Urine Opiates NEGATIVE Screen Urine NEGATIVE Barbiturates Urine Negative Amphetamines Screen Urine NEGATIVE Benzodiazepines Screen Urine Cocaine NEGATIVE Screen Urine NEGATIVE Cannabinoids Phosphorus Level 4.5 Magnesium Level 2.2 Thyroid 3.570 Stimulating Hormone (TSH) Past Medical History reviewed Home Meds Active Scripts Metoprolol Tartrate* (Lopressor*) 25 Mg Tab, 25 MG PO DAILY, #30 TAB 2 Refills Prov:JUAN DUNN S. 10/17/18 Clonidine Hcl* (Clonidine Hcl*) 0.1 Mg Tab, 0.1 MG PO NEEDED PRN for HTN, #14 TAB Prov:JUAN DUNN S. 10/17/18 Omeprazole* (Omeprazole*) 20 Mg Capsule.dr, 20 MG PO DAILY, #30 CAP 2 Refills Prov:ARNOLD DUNNP S. 10/17/18 Discontinued Scripts Hydrocodone Bit-Acetaminophen* (Ast[place]*) 10-325 Mg Tablet, 1 TAB PO Q6 PRN for PAIN, #12 TAB Prov:ANGELA BEAR MD 06/25/15 Medications Current Medications IV Flush (NS 3 ml) 3 ml PER PROTOCOL IV ; Start 10/16/18 at 16:30 Ondansetron HCl (Zofran Inj) 4 mg Q6H PRN IV NAUSEA/VOMITING Last administered on 10/17/18at 12:43; Admin Dose 4 MG; Start 10/16/18 at 16:30 Acetaminophen (Tylenol Tab) 650 mg Q6H PRN PO .PAIN 1-3 OR TEMP Last administered on 10/16/18at 21:10; Admin Dose 650 MG; Start 10/16/18 at 16:30 Acetaminophen/ Hydrocodone Bitart ([place] (5/325)) 1 tab Q6H PRN PO .MOD PAIN 4- 6; Start 10/16/18 at 16:30 Morphine Sulfate (morphine) 2 mg Q4H PRN IV .SEVERE PAIN 7-10; Start 10/16/18 at 16:30 Docusate Sodium (Colace) 100 mg Q12H PRN PO .CONSTIPATION; Start 10/16/18 at 16:30 Magnesium Hydroxide (Milk Of Mag) 30 ml DAILY PRN PO .CONSTIPATION; Start 10/16/18 at 16:30 Pantoprazole (Protonix Tab) 40 mg DAILY@06 PO Last administered on 10/17/18at 05:58; Admin Dose 40 MG; Start 10/17/18 at 06:00 Lorazepam (Ativan) 0.5 mg Q6H PRN IV ANXIETY; Start 10/16/18 at 16:30 Albuterol/ Ipratropium (Duoneb) 3 ml Q4H RESP THERAPY PRN HHN SHORTNESS OF BREATH; Start 10/16/18 at 16:30 Hydralazine HCl (Apresoline) 10 mg Q6H PRN IV ELEVATED BLOOD PRESSURE; Start 10/16/18 at 16:30 Nitroglycerin (Nitroglycerin (Sl Tab) 0.4 Mg) 1 tab Q5M PRN SL ANGINA; Start 10/16/18 at 16:30 Aspirin (Halfprin) 81 mg DAILY PO ; Start 10/18/18 at 09:00 Allergies: Coded Allergies: No Known Allergy (Unverified , 10/16/18) Past Surgical History Past Surgical Hx: no surgical history Social History Alcohol Use: none Smoking Status: Never smoker Drug Use: none CHYNA HAMPTON Oct 17, 2018 13:03
[2018-10-17] MEDS: ACETAMINOPHEN 325 MG TAB PO PRN (14:32)
[2018-10-17] MEDS ORDERED: ENALAPRILAT 1.25 MG INJ IV PRN (15:00)
[2018-10-17] MEDS ORDERED: METOPROLOL 25 MG TAB PO SCH (15:00)
[2018-10-17] MEDS ORDERED: ONDANSETRON 4 MG INJ IV ONE (17:00)
--- NOTE | 2018-10-17 20:06 | RADRPT ---
Echocardiogram Report Patient Name: AISHWARYA DORANTESPatient ID: [id number] : 1960 (58y 1m)Study Date: 10/17/2018 8:21:39 AM Gender: FAccession #: [id number] Tech: Maura Mejia [facility] Location: [facility] Ref.Physician: JUAN DUNN Height(Cm): BSA: Weight(Kg): Quality: AdequateOrder Physician: JUAN DUNN Account #: Procedures: Echocardiographic Report: Transthoracic echocardiogram with complete 2D, M-Mode, and doppler examination. Indications: Cerebrovascular Accident. Measurements: 2D/M Mode Doppler Measurement Value Normal Range Measurement Value Normal Range LVIDd 2D 4.4 [ 3.8 - 5.2 ] cm AV Peak Michel 1.3 [ 100.0 - 170.0 ] cm/sec LVIDs 2D 2.8 [ 2.2 - 3.5 ] cm AV Peak PG 7.0 [ 2.0 - 9.0 ] mmHg LVPWd 2D 0.9 [ 0.6 - 0.9 ] cm LVOT Peak Michel 0.9 [ 70.0 - 110.0 ] cm/sec IVSd 2D 1.0 [ 0.6 - 0.9 ] cm LVOT Peak PG 3.0 [ 2.0 - 6.0 ] mmHg AoR Diam 2D 2.2 [ 2.3 - 3.1 ] cm MV E Peak Michel 0.8 [ 60.0 - 130.0 ] cm/sec EDV 2D 86.3 [ 46.0 - 106.0 ] ml MV A Peak Michel 1.1 [ 100.0 - 120.0 ] cm/sec ESV 2D 29.3 [ 14.0 - 42.0 ] ml MV E/A 0.8 [ 0.8 - 1.5 ] ratio EF 2D 66.0 [ 54.0 - 74.0 ] percent MV Decel Time 257 [ 104 - 258 ] msec LA Dimen 2D 3.1 [ 2.7 - 3.8 ] cm Lat E` Michel 0.1 [ 10.0 - 15.0 ] cm/sec Lateral E/E` 11.1 [ 1.0 - 2.0 ] ratio Med E` Michel 0.1 cm/sec MV E/A 0.8 [ 0.8 - 1.5 ] ratio TR Peak Michel 2.2 [ 100.0 - 280.0 ] cm/sec TR Peak PG 19.0 mmHg RVSP 22.0 [ 10.0 - 36.0 ] mmHg RA Pressure 3.0 mmHg Findings: Left Ventricle: Normal left ventricular systolic function. Normal left ventricular cavity size. Normal left ventricular wall thickness. Ejection fraction is visually estimated at 60 %. Tissue Doppler/Mitral Doppler indices are consistent with impaired relaxation (Stage I diastolic dysfunction). Right Ventricle: Normal right ventricular size. Normal right ventricular systolic function. Left Atrium: The left atrium is normal in size. Right Atrium: The right atrium is normal in size. Mitral Valve: Mitral valve leaflets appear mildly thickened. Mild mitral annular calcification. Trace mitral regurgitation. Aortic Valve: Normal appearance of the aortic valve. No significant aortic stenosis or insufficiency. Tricuspid Valve: Normal appearance of the tricuspid valve. The estimated Peak RVSP is 22 mmHg. There is trace tricuspid regurgitation. Pulmonic Valve: Pulmonic valve not well visualized. Pericardium: Normal pericardium with no significant pericardial effusion. Aorta: Normal aortic root. IVC: Normal size and normal respiratory collapse consistent with normal right atrial pressure. Conclusions: Normal left ventricular systolic function. Grade 1 diastolic dysfunction. Trace mitral and tricuspid regurgitation. Electronically Signed By: Daniela Cobb 2018-10-17 20:05:39 PDT
[2018-10-18] MEDS ORDERED: ASPIRIN (EC) 81 MG TAB PO SCH (09:00)
== END 2018-10-17 19:36 | disposition home or self-care (01) | DRG 78 ==
LOC: E/R 13:51 → 6WM 15:49
PROVIDERS: ADMIT Hospitalist; ATTEND Hospitalist
DX: I67.4 Hypertensive encephalopathy (principal); I16.1 Hypertensive emergency; D32.0 Benign neoplasm of cerebral meninges; R47.02 Dysphasia; I16.0 Hypertensive urgency; I10 Essential (primary) hypertension; F17.210 Nicotine dependence, cigarettes, uncomplicated
CPT/HCPCS: 36415; 70450; 70496; 70498; 70551; 71045; 80048; 80061; 80307; 81001; 81003; 82550; 82553; 83036; 83735; 84100; 84439; 84443; 84484; 85025; 85610; 85730; 87086; 93005; 93306; 93880; 96374; 96375; 97161; 97166; J0360; J2405; J2765; J3010; Q9967